=== PATIENT | female | born 1970 | race Caucasian/White ===

== ENCOUNTER → 2016-08-06 | Outpatient (CLI) | payer OTHER | LOC: RAD 02:16 | DX: Z12.31 Encounter for screening mammogram for malignant neoplasm of breast (principal) ==

== ENCOUNTER → 2017-09-12 | Outpatient (CLI) | payer OTHER | LOC: RAD 00:21 | DX: Z12.31 Encounter for screening mammogram for malignant neoplasm of breast (principal) ==